=== PATIENT | female | born 1940 | race Caucasian/White ===

== ENCOUNTER 2017-01-21 14:41 | Emergency (ER) | payer MEDICARE, MEDICAID ==
[2017-01-21 14:52] VITALS: BP 123/71; PULSE 66; RESP 15; TEMP 98.1; O2SAT 98
[2017-01-21] MEDS ORDERED: Bacitracin 500 Units/gm Oint Foilpak UD TOP ONE (15:04)
--- NOTE | 2017-01-21 15:06 | C.PDOC ---
History Of Present Illness 76 yr old female presents to the ER with complaints of swelling and a bump to the right cheek for the past 2 days. Patient believes something bit her. Notes, initially the area was itchy but no longer itchy. Denies fever, chills, vision changes, discharge from the area or headache. Time Seen by Provider: 01/21/17 15:00 Chief Complaint (Nursing): Eye Problem History Per: Patient History/Exam Limitations: no limitations Onset/Duration Of Symptoms: Days (2) Current Symptoms Are (Timing): Still Present Past Medical History Reviewed: Historical Data, Nursing Documentation, Vital Signs Vital Signs: Last Vital Signs Temp 98.1 F 01/21/17 14:51 Pulse 66 01/21/17 14:51 Resp 15 01/21/17 14:51 BP 123/71 01/21/17 14:51 Pulse Ox 98 01/21/17 16:02 - Medical History PMH: Arthritis, Emphysema, HTN, Hypercholesterolemia, Osteoporosis - [facility] Procedures DRAINAGE OF RIGHT HAND SKIN, EXTERNAL APPROACH (11/20/15) Family History: States: No Known Family Hx - Social History Hx Tobacco Use: Yes Hx Alcohol Use: No Hx Substance Use: No - Immunization History Hx Tetanus Toxoid Vaccination: Yes Hx Influenza Vaccination: Yes (up to date) Hx Pneumococcal Vaccination: Yes (up to date) Review Of Systems Except As Marked, All Systems Reviewed And Found Negative. Constitutional: Positive for: Other ((+) Swelling and a bump to the right cheek. ). Negative for: Fever, Chills Eyes: Negative for: Vision Change Neurological: Negative for: Headache Physical Exam - Physical Exam Appears: Well, Non-toxic, No Acute Distress Skin: Warm, Dry, Other (Right Cheek: erythematous, non tender papule. No discharge. ) Head: Atraumatic, Normacephalic Eye(s): bilateral: Normal Inspection, PERRL, EOMI Nose: Normal, No Flaring, No Discharge Oral Mucosa: Moist Throat: Normal, No Erythema, No Exudate Neck: Normal, Normal ROM, Supple Chest: Symmetrical, No Tenderness Cardiovascular: Rhythm Regular, No Murmur Respiratory: Normal Breath Sounds, No Rales, No Rhonchi, No Stridor, No Wheezing Extremity: Normal ROM, No Swelling Neurological/Psych: Oriented x3, Normal Speech, Normal Motor ED Course And Treatment O2 Sat by Pulse Oximetry: 98 Pulse Ox Interpretation: Normal Progress Note: Bacitracin was applie dto the area. Patient is dischagred home in stable condiotion, told to follow up with PMD for further evaluation. Medical Decision Making Medical Decision Making: no abscess or cellulitis explain nothing further to do, will heal, can take Benadryl for itching Disposition Counseled Patient/Family Regarding: Need For Followup - Disposition Disposition: HOME/ ROUTINE Disposition Time: 15:05 Condition: STABLE Additional Instructions: Puede korey benadryl para cualquier picazn o inflamacin del benitez Instructions: Insect Bite or Sting (ED) Print Language: TURKISH - POA Present On Arrival: None - Clinical Impression Clinical Impression: Insect bite of cheek - PA / SURVEY STATISTICIAN / Resident Statement MD/DO has reviewed & agrees with the documentation as recorded. - Scribe Statement The provider has reviewed the documentation as recorded by the Scribe Evette Freitas All medical record entries made by the Scribe were at my direction and personally dictated by me. I have reviewed the chart and agree that the record accurately reflects my personal performance of the history, physical exam, medical decision making, and the department course for this patient. I have also personally directed, reviewed, and agree with the discharge instructions and disposition.
[2017-01-21] MEDS ORDERED: Bacitracin 500 Units/gm Oint Foilpak UD ONE (15:14)
== END 2017-01-21 15:14 | disposition home or self-care (01) ==
LOC: C.ER 14:41
DX: S00.86XA Insect bite (nonvenomous) of other part of head, initial encounter (principal); W57.XXXA Bitten or stung by nonvenomous insect and other nonvenomous arthropods, initial encounter

== ENCOUNTER 2018-01-26 20:21 | Inpatient (IN) | payer MEDICARE, OTHER ==
[2018-01-26] MEDS ORDERED: Sodium Chloride 0.9% 1,000 ML IV ONE (20:43)
--- NOTE | 2018-01-26 20:50 | C.PDOC ---
History Of Present Illness 77 year old female presents to the ER with a complaint of abdominal pain that began today. Patient states the pain is diffuse but mostly to the RLQ. Denies nausea, vomiting, diarrhea, or dysuria. Chief Complaint (Nursing): Abdominal Pain History Per: Patient History/Exam Limitations: no limitations Onset/Duration Of Symptoms: Hrs Current Symptoms Are (Timing): Still Present Location Of Pain/Discomfort: Diffuse, RLQ Radiation Of Pain To:: None Quality Of Discomfort: Unable To Describe Associated Symptoms: denies: Fever, Chills, Nausea, Vomiting, Diarrhea, Urinary Symptoms Exacerbating Factors: None Alleviating Factors: None Recent travel outside of the [place]: No Abnormal Vaginal Bleeding: No Past Medical History Reviewed: Historical Data, Nursing Documentation, Vital Signs Vital Signs: Last Vital Signs Temp 98.4 F 01/26/18 23:30 Pulse 78 01/26/18 23:30 Resp 19 01/26/18 23:30 BP 148/84 01/26/18 23:30 Pulse Ox 97 01/26/18 23:30 - Medical History PMH: Arthritis, Emphysema, HTN, Hypercholesterolemia, Osteoporosis - [facility] Procedures DRAINAGE OF RIGHT HAND SKIN, EXTERNAL APPROACH (11/20/15) Family History: States: Unknown Family Hx - Social History Hx Tobacco Use: Yes Hx Alcohol Use: No Hx Substance Use: No - Immunization History Hx Tetanus Toxoid Vaccination: Yes Hx Influenza Vaccination: Yes (up to date) Hx Pneumococcal Vaccination: Yes (up to date) Review Of Systems Constitutional: Negative for: Fever, Chills Cardiovascular: Negative for: Chest Pain, Palpitations Respiratory: Negative for: Cough, Shortness of Breath Gastrointestinal: Positive for: Abdominal Pain. Negative for: Nausea, Vomiting , Diarrhea Genitourinary: Negative for: Dysuria Physical Exam - Physical Exam Appears: Non-toxic Skin: Normal Color, Warm, Dry Head: Atraumatic, Normacephalic Eye(s): bilateral: Normal Inspection Oral Mucosa: Moist Chest: Symmetrical, No Tenderness Cardiovascular: Rhythm Regular Respiratory: Normal Breath Sounds, No Rales, No Rhonchi, No Wheezing Gastrointestinal/Abdominal: Soft, Tenderness (Diffuse, mostly to RLQ), No Guarding, No Rebound Neurological/Psych: Oriented x3, Normal Speech ED Course And Treatment - Laboratory Results Result Diagrams: 01/26/18 21:03 01/26/18 21:03 O2 Sat by Pulse Oximetry: 99 (Room air) Pulse Ox Interpretation: Normal Progress Note: Blood work and urinalysis ordered. IV fluids and toradol administered. Disposition Discussed With Dr.: Luther Zavaleta Doctor Will See Patient In The: Hospital Counseled Patient/Family Regarding: Diagnosis - Disposition Disposition: HOSPITALIZED Disposition Time: 00:16 Condition: STABLE Forms: [facility] ([place]) - POA Present On Arrival: None - Clinical Impression Clinical Impression: Abdominal pain, Acute appendicitis - Scribe Statement The provider has reviewed the documentation as recorded by the Scribromero Zelaya All medical record entries made by the Jessicaibromero were at my direction and personally dictated by me. I have reviewed the chart and agree that the record accurately reflects my personal performance of the history, physical exam, medical decision making, and the department course for this patient. I have also personally directed, reviewed, and agree with the discharge instructions and disposition.
[2018-01-26] MEDS ORDERED: Sodium Chloride 0.9% 1,000 ML ONE (21:04)
[2018-01-26 21:05] LABS: BASO # 0.1 K/uL (0.0-0.2); BASO % 0.8 % (0.0-2.0); EOS # 0.8 K/uL (0.0-0.7); EOS % 5.8 % (0.0-4.0); HEMOGLOBIN 13.6 g/dL (11.0-16.0); LYMPH # 1.5 K/uL (1.0-4.3); LYMPH % 10.5 % (20.0-40.0); MEAN CELL VOLUME 85.9 fL (81.0-99.0); MEAN CORPUSCULAR HEMOGLOBIN 28.7 pg (27.0-31.0); MEAN CORPUSCULAR HGB CONC 33.4 g/dL (33.0-37.0); MONO # 0.7 K/uL (0.0-0.8); MONO % 5.1 % (0.0-10.0); NEUT # 10.8 K/uL (1.8-7.0); NEUT % 77.8 % (50.0-75.0); RBC 4.72 Mil/uL (3.80-5.20); RED CELL DISTRIBUTION WIDTH 13.9 % (11.5-14.5); WHITE BLOOD COUNT 13.9 K/uL (4.8-10.8)
[2018-01-26 21:19] LABS: ALB/GLOB RATIO 1.1 (1.0-2.1); ALBUMIN 3.9 g/dL (3.5-5.0); ALT/SGPT 23 U/L (9-52); AST/SGOT 25 U/L (14-36); BLOOD UREA NITROGEN 9 mg/dL (7-17); CALCIUM 9.7 mg/dl (8.6-10.4); GFR AFRICAN-AMERICAN > 60; GFR NON-AFRICAN AMERICAN > 60; LIPASE 46 U/L (23-300)
[2018-01-26] MEDS ORDERED: Iohexol 240 (50 ml) PO ONE (21:25)
[2018-01-26 21:27] LABS: URINE BILIRUBIN NEGATIVE (NEGATIVE); URINE BLOOD NEGATIVE (NEGATIVE); URINE CLARITY Clear (Clear); URINE COLOR Straw (YELLOW); URINE GLUCOSE (UA) NORMAL (Normal); URINE LEUKOCYTE ESTERASE NEG Leu/uL (Negative); URINE PROTEIN NEGATIVE (NEGATIVE); URINE UROBILINOGEN NORMAL mg/dL (0.2-1.0)
[2018-01-26] MEDS ORDERED: Iohexol 240 (50 ml) ONE (21:29)
--- NOTE | 2018-01-26 23:57 | CT ---
EXAM: CT Abdomen and Pelvis With Intravenous Contrast CLINICAL HISTORY: 77 years old, female; Pain; Abdominal pain; Additional info: Abd pain TECHNIQUE: Axial computed tomography images of the abdomen and pelvis with intravenous contrast. All CT scans at this facility use one or more dose reduction techniques, viz.: automated exposure control; ma/kV adjustment per patient size (including targeted exams where dose is matched to indication; i.e. head); or iterative reconstruction technique. Coronal and sagittal reformatted images were created and reviewed. CONTRAST: 100 mL of [id number] administered intravenously. COMPARISON: No relevant prior studies available. FINDINGS: Limitations: Motion artifact - mild to moderate. Lung bases: Minimal atelectasis/scarring. Heart: Mild cardiomegaly. Mediastinum: Small hiatal hernia. ABDOMEN: Liver: Unremarkable. No mass. Gallbladder and bile ducts: No calcified stones. No ductal dilation. Pancreas: No ductal dilation. No mass. Spleen: No splenomegaly. Adrenals: 1.4 x 1.1 x 1.0 cm lesion within RIGHT adrenal gland, indeterminate by CT criteria. Kidneys and ureters: No mass. No hydronephrosis. Stomach and bowel: Few scattered diverticula within colon. No associated inflammatory stranding. No definite mural thickening. No obstruction. PELVIS: Appendix: Enlarged appendix, measuring up to 0.9 cm in diameter. Mucosal enhancement. Mild stranding about appendix. Bladder: Unremarkable. Reproductive: Hysterectomy. ABDOMEN and PELVIS: Intraperitoneal space: No significant fluid collection. No free air. Bones/joints: Mild degenerative changes of spine. Probable bone islands. No acute fracture. Soft tissues: Unremarkable. Vasculature: Mild atherosclerotic disease. No aneurysm. Lymph nodes: No pathologically enlarged lymph nodes. IMPRESSION: 1. Acute appendicitis. 2. Adrenal lesion, incompletely characterized. Recommend nonemergent MRI. 3. Incidental/non-acute findings are described above.
[2018-01-27] MEDS ORDERED: Piperacillin/Tazobact 3.375 gm 100 ML IVPB STA (00:08)
[2018-01-27] MEDS ORDERED: metroNIDAZOLE IV 500 mg/100 ml 500 MG/100 ML BAG IVPB SCH (00:15)
[2018-01-27] MEDS ORDERED: metroNIDAZOLE IV 500 mg/100 ml 500 MG/100 ML BAG IVPB STA (02:01)
[2018-01-27] MEDS ORDERED: metroNIDAZOLE IV 500 mg/100 ml 500 MG/100 ML BAG ONE (02:05)
[2018-01-27] MEDS ORDERED: Piperacillin/Tazobact 3.375 GM in Sodium Chloride 100 ML IVPB SCH (02:15)
--- NOTE | 2018-01-27 02:17 | CP.PCM.HP ---
History of Present Illness - History of Present Illness History of Present Illness: SURGERY H&P FOR DR. ARREAGA 77F presents with abdominal pain that started 12 hours ago. Patient states pain was in the lower abdomen initially and has now concentrated in the right lower quadrant. Patient admits to nausea and vomiting, admits to not tolerating diet. Denies fevers or chills. Never had this time of pain before. PMH: HTN, HLD, Emphysema PSH: Hysterectomy Social: smokes socially, does not drink alcohol Allergies: NKDA Present on Admission - Present on Admission Any Indicators Present on Admission: No Past Patient History - Infectious Disease Hx of Infectious Diseases: None - Past Medical History & Family History Past Medical History?: Yes - Past Social History Smoking Status: Light Smoker < 10 Cigarettes Daily - CARDIAC Hx Hypercholesterolemia: Yes Hx Hypertension: Yes - PULMONARY Hx Emphysema: Yes - NEUROLOGICAL Hx Neurological Disorder: No - HEENT Hx HEENT Problems: No - RENAL Hx Chronic Kidney Disease: No - ENDOCRINE/METABOLIC Hx Endocrine Disorders: No - HEMATOLOGICAL/ONCOLOGICAL Hx Blood Disorders: No - INTEGUMENTARY Hx Dermatological Problems: No - MUSCULOSKELETAL/RHEUMATOLOGICAL Hx Arthritis: Yes Hx Osteoporosis: Yes - GASTROINTESTINAL Hx Gastrointestinal Disorders: No - GENITOURINARY/GYNECOLOGICAL Hx Genitourinary Disorders: No - PSYCHIATRIC Hx Substance Use: No - SURGICAL HISTORY Hx Surgeries: Yes Hx Hysterectomy: Yes - ANESTHESIA Hx Anesthesia: Yes Hx Anesthesia Reactions: No Hx Malignant Hyperthermia: No Meds Allergies/Adverse Reactions: Allergies Allergy/AdvReac Type Severity Reaction Status Date / Time No Known Allergies Allergy Verified 01/26/18 20:29 Physical Exam - Constitutional Appears: Well, Non-toxic, No Acute Distress Additional comments: uncomfortable due to pain - Eye Exam Eye Exam: EOMI, PERRL - ENT Exam ENT Exam: Mucous Membranes Moist - Respiratory Exam Respiratory Exam: Clear to Auscultation Bilateral, NORMAL BREATHING PATTERN - Cardiovascular Exam Cardiovascular Exam: REGULAR RHYTHM, +S1, +S2 - GI/Abdominal Exam GI & Abdominal Exam: Soft, Tenderness (RLQ pain). absent: Distended, Firm, Guarding, Rebound, Rigid - Extremities Exam Extremities exam: Negative for: pedal edema, tenderness - Neurological Exam Neurological exam: Alert, Oriented x3 - Psychiatric Exam Psychiatric exam: Normal Affect, Normal Mood - Skin Skin Exam: Dry, Intact, Normal Color, Warm Results - Vital Signs Recent Vital Signs: Last Vital Signs Temp 98.4 F 01/26/18 23:30 Pulse 78 01/26/18 23:30 Resp 19 01/26/18 23:30 BP 148/84 01/26/18 23:30 Pulse Ox 99 01/27/18 00:17 - Labs Result Diagrams: 01/26/18 21:03 01/26/18 21:03 Labs: Laboratory Results - last 24 hr 01/26/18 01/26/18 01/26/18 21:03 21:03 21:12 WBC 13.9 H RBC 4.72 Hgb 13.6 Hct 40.6 MCV 85.9 MCH 28.7 MCHC 33.4 RDW 13.9 Plt Count 278 MPV 8.0 Neut % (Auto) 77.8 H Lymph % (Auto) 10.5 L [place] % (Auto) 5.1 Eos % (Auto) 5.8 H Baso % (Auto) 0.8 Neut # (Auto) 10.8 H Lymph # (Auto) 1.5 [place] # (Auto) 0.7 Eos # (Auto) 0.8 H Baso # (Auto) 0.1 Sodium 144 Potassium 4.3 Chloride 105 Carbon Dioxide 27 Anion Gap 16 BUN 9 Creatinine 0.6 L Est GFR ( Amer) > 60 Est GFR (Non-Af Amer) > 60 Random Glucose 95 Calcium 9.7 Total Bilirubin 0.4 AST 25 ALT 23 Alkaline Phosphatase 122 Total Protein 7.4 Albumin 3.9 Globulin 3.5 Albumin/Globulin Ratio 1.1 Lipase 46 Urine Color Straw Urine Clarity Clear Urine pH 7.0 Ur Specific [place] 1.008 Urine Protein Negative Urine Glucose (UA) Normal Urine Ketones Negative Urine Blood Negative Urine Nitrate Negative Urine Bilirubin Negative Urine Urobilinogen Normal Ur Leukocyte Esterase Neg Urine WBC (Auto) < 1 Urine RBC (Auto) 2 Assessment & Plan - Assessment and Plan (Free Text) Assessment: 77F with acute appendicitis Plan: NPO, IVF Pain control Antibiotics Scheduled for OR Discussed with Dr. Waqar Page, PGY2
[2018-01-27] MEDS ORDERED: HYDROmorphone 0.5 mg/0.5 ml ISec IVP PRN (02:21)
[2018-01-27] MEDS: Sodium Chloride 0.9% 1,000 ML IV SCH ×3 (03:30→22:09)
[2018-01-27 04:32] LABS: HEMOGLOBIN 12.1 g/dL (11.0-16.0); INR 1.1; WHITE BLOOD COUNT 12.1 K/uL (4.8-10.8)
[2018-01-27 04:42] LABS: BASO % 0.3 % (0.0-2.0); EOS # 0.5 K/uL (0.0-0.7); EOS % 4.3 % (0.0-4.0); LYMPH # 1.9 K/uL (1.0-4.3); LYMPH % 15.4 % (20.0-40.0); MEAN CELL VOLUME 85.9 fL (81.0-99.0); MEAN CORPUSCULAR HEMOGLOBIN 28.5 pg (27.0-31.0); MEAN CORPUSCULAR HGB CONC 33.2 g/dL (33.0-37.0); MEAN PLATELET VOLUME 8.1 fL (7.2-11.7); MONO # 0.8 K/uL (0.0-0.8); MONO % 6.6 % (0.0-10.0); NEUT # 8.9 K/uL (1.8-7.0); NEUT % 73.4 % (50.0-75.0); RBC 4.25 Mil/uL (3.80-5.20); RED CELL DISTRIBUTION WIDTH 13.4 % (11.5-14.5)
[2018-01-27 04:57] LABS: ALB/GLOB RATIO 1.3 (1.0-2.1); ALBUMIN 3.6 g/dL (3.5-5.0); ALT/SGPT 27 U/L (9-52); AST/SGOT 19 U/L (14-36); BLOOD UREA NITROGEN 7 mg/dL (7-17); CALCIUM 8.7 mg/dl (8.6-10.4); GFR AFRICAN-AMERICAN > 60; GFR NON-AFRICAN AMERICAN > 60
[2018-01-27] MEDS: Piperacillin/Tazobact 3.375 GM in Sodium Chloride 100 ML IVPB SCH ×3 (06:56→17:33)
[2018-01-27] MEDS ORDERED: Propofol 10 mg/ml Inj (20 ML) ONE (12:19)
[2018-01-27] MEDS ORDERED: Neostigmine Methylsulfate 3mg/3ml Syringe IV ONE (12:59)
--- NOTE | 2018-01-27 13:21 | PCM.SURG1 ---
Surgeon's Initial Post Op Note - Surgeon's Notes Surgeon: Dr. Zavaleta Cook [place]: Huey Hood PGY2 Type of Anesthesia: General Endo Anesthesia Administered By: Aleshia Pre-Operative Diagnosis: acute appendicitis Operative Findings: acute appendicitis Post-Operative Diagnosis: Same Operation Performed: laparoscopic appendectomy Specimen/Specimens Removed: appendix Estimated Blood Loss: EBL {In ML}: 10 Blood Products Given: N/A Drains Used: No Drains Post-Op Condition: Good Date of Surgery/Procedure: 01/27/18 Time of Surgery/Procedure: 13:20
[2018-01-27] MEDS ORDERED: Oxycodone/Acetaminophen 5/325 mg Tab PO PRN (13:29)
[2018-01-27 16:04] VITALS: RESP 20
[2018-01-28] MEDS: Piperacillin/Tazobact 3.375 GM in Sodium Chloride 100 ML IVPB SCH ×2 (00:33→13:30)
--- NOTE | 2018-01-28 01:55 | OP ---
PROCEDURE DATE: 01/27/2018 SURGEON: Luther Zavaleta MD ACID TANK CLEANER: Dr. Hood. ANESTHESIA: General. ANESTHESIOLOGISTS: Tino Burgos MD and Aleshia Mccartney CRNA PREOPERATIVE DIAGNOSIS: Acute appendicitis. POSTOPERATIVE DIAGNOSIS: Acute appendicitis. PROCEDURE: Laparoscopic appendectomy. DESCRIPTION OF OPERATION: With the patient in the supine position under adequate general anesthesia, the abdomen was prepped and draped in the usual sterile manner. Veress needle puncture was performed at the umbilicus with insufflation to 15 cm water pressure of CO2, and a 10-mm laparoscopic trocar was inserted via an infraumbilical incision. The patient was noted to have scattered adhesions presumably from her previous hysterectomy and under direct vision, a 5-mm trocar was inserted in the upper midline, and a 12-mm trocar was inserted in the right lower quadrant. The appendix was identified. It was exposed and noted to be acutely inflamed with a thickened edematous mesoappendix. The appendix was elevated and the mesoappendix was dissected. The mesoappendix was divided using an Endo VINCE stapler. The appendix itself was then amputated close to the cecum using a second pass of the Endo VINCE stapler. The stump was observed for hemostasis. The appendix was placed in a specimen retrieval bag and removed via the 12-mm port site. A small amount of bleeding initially noted from the umbilical port site was seemed to be emanating from an omental adhesion and with observation, this was noted to have stopped without additional treatment. The pneumoperitoneum was released, and the trocars were removed. The umbilical and 12-mm port sites were closed with [id number] fascial sutures of 0 Vicryl. All incisions were closed with 4-0 Monocryl subcuticular sutures and Dermabond. The patient tolerated the procedure well and transferred to recovery room in stable condition. Estimated blood loss for the procedure was 10 mL. Luther Zavaleta MD [facility]
[2018-01-28 07:51] LABS: BASO # 0.1 K/uL (0.0-0.2); BASO % 0.4 % (0.0-2.0); EOS # 0.1 K/uL (0.0-0.7); HEMOGLOBIN 11.3 g/dL (11.0-16.0); LYMPH # 1.9 K/uL (1.0-4.3); LYMPH % 13.1 % (20.0-40.0); MEAN CORPUSCULAR HGB CONC 33.3 g/dL (33.0-37.0); MEAN PLATELET VOLUME 8.2 fL (7.2-11.7); MONO # 1.1 K/uL (0.0-0.8); MONO % 7.2 % (0.0-10.0); NEUT # 11.4 K/uL (1.8-7.0); NEUT % 78.3 % (50.0-75.0); RBC 3.89 Mil/uL (3.80-5.20); RED CELL DISTRIBUTION WIDTH 13.9 % (11.5-14.5); WHITE BLOOD COUNT 14.6 K/uL (4.8-10.8)
[2018-01-28 08:04] VITALS: O2SAT 100
[2018-01-28 08:09] LABS: ALB/GLOB RATIO 0.9 (1.0-2.1); ALBUMIN 2.9 g/dL (3.5-5.0); ALT/SGPT 19 U/L (9-52); AST/SGOT 20 U/L (14-36); BLOOD UREA NITROGEN 11 mg/dL (7-17); CALCIUM 8.3 mg/dl (8.6-10.4); GFR AFRICAN-AMERICAN > 60; GFR NON-AFRICAN AMERICAN > 60
[2018-01-28] MEDS: Sodium Chloride 0.9% 1,000 ML IV SCH (08:15)
--- NOTE | 2018-01-28 10:17 | CP.PCM.DIS ---
Provider - Provider Date of Admission: 01/27/18 00:17 Attending physician: Luther Zavaleta MD Time Spent in preparation of Discharge (in minutes): 35 Diagnosis - Discharge Diagnosis (1) Abdominal pain Status: Resolved (2) Acute appendicitis Status: Resolved Hospital Course - Lab Results Lab Results: Most Recent Lab Values WBC 14.6 K/uL (4.8-10.8) H 01/28/18 07:43 RBC 3.89 Mil/uL (3.80-5.20) 01/28/18 07:43 Hgb 11.3 g/dL (11.0-16.0) 01/28/18 07:43 Hct 33.8 % (34.0-47.0) L 01/28/18 07:43 MCV 87.0 fL (81.0-99.0) 01/28/18 07:43 MCH 29.0 pg (27.0-31.0) 01/28/18 07:43 MCHC 33.3 g/dL (33.0-37.0) 01/28/18 07:43 RDW 13.9 % (11.5-14.5) 01/28/18 07:43 Plt Count 227 K/uL (130-400) 01/28/18 07:43 MPV 8.2 fL (7.2-11.7) 01/28/18 07:43 Neut % (Auto) 78.3 % (50.0-75.0) H 01/28/18 07:43 Lymph % (Auto) 13.1 % (20.0-40.0) L 01/28/18 07:43 [place] % (Auto) 7.2 % (0.0-10.0) 01/28/18 07:43 Eos % (Auto) 1.0 % (0.0-4.0) 01/28/18 07:43 Baso % (Auto) 0.4 % (0.0-2.0) 01/28/18 07:43 Neut # (Auto) 11.4 K/uL (1.8-7.0) H 01/28/18 07:43 Lymph # (Auto) 1.9 K/uL (1.0-4.3) 01/28/18 07:43 [place] # (Auto) 1.1 K/uL (0.0-0.8) H 01/28/18 07:43 Eos # (Auto) 0.1 K/uL (0.0-0.7) 01/28/18 07:43 Baso # (Auto) 0.1 K/uL (0.0-0.2) 01/28/18 07:43 PT 12.0 SECONDS (9.7-12.2) 01/27/18 04:24 INR 1.1 01/27/18 04:24 APTT 31 SECONDS (21-34) 01/27/18 04:24 Sodium 140 mmol/L (132-148) 01/28/18 07:43 Potassium 3.7 mmol/L (3.6-5.2) 01/28/18 07:43 Chloride 107 mmol/L (98-107) 01/28/18 07:43 Carbon Dioxide 23 mmol/L (22-30) 01/28/18 07:43 Anion Gap 14 (10-20) 01/28/18 07:43 BUN 11 mg/dL (7-17) 01/28/18 07:43 Creatinine 0.8 mg/dL (0.7-1.2) 01/28/18 07:43 Est GFR ( Amer) > 60 01/28/18 07:43 Est GFR (Non-Af Amer) > 60 01/28/18 07:43 Random Glucose 103 mg/dL (65-105) 01/28/18 07:43 Calcium 8.3 mg/dl (8.6-10.4) L 01/28/18 07:43 Total Bilirubin 0.9 mg/dL (0.2-1.3) 01/28/18 07:43 AST 20 U/L (14-36) 01/28/18 07:43 ALT 19 U/L (9-52) 01/28/18 07:43 Alkaline Phosphatase 84 U/L (38-126) 01/28/18 07:43 Total Protein 5.9 g/dL (6.3-8.3) L 01/28/18 07:43 Albumin 2.9 g/dL (3.5-5.0) L 01/28/18 07:43 Globulin 3.1 gm/dL (2.2-3.9) 01/28/18 07:43 Albumin/Globulin Ratio 0.9 (1.0-2.1) L 01/28/18 07:43 Lipase 46 U/L (23-300) 01/26/18 21:03 Urine Color Straw (YELLOW) 01/26/18 21:12 Urine Clarity Clear (Clear) 01/26/18 21:12 Urine pH 7.0 (5.0-8.0) 01/26/18 21:12 Ur Specific [place] 1.008 (1.003-1.030) 01/26/18 21:12 Urine Protein Negative mg/dL (NEGATIVE) 01/26/18 21:12 Urine Glucose (UA) Normal mg/dL (Normal) 01/26/18 21:12 Urine Ketones Negative mg/dL (NEGATIVE) 01/26/18 21:12 Urine Blood Negative (NEGATIVE) 01/26/18 21:12 Urine Nitrate Negative (NEGATIVE) 01/26/18 21:12 Urine Bilirubin Negative (NEGATIVE) 01/26/18 21:12 Urine Urobilinogen Normal mg/dL (0.2-1.0) 01/26/18 21:12 Ur Leukocyte Esterase Neg Tonie/uL (Negative) 01/26/18 21:12 Urine WBC (Auto) < 1 /hpf (0-5) 01/26/18 21:12 Urine RBC (Auto) 2 /hpf (0-3) 01/26/18 21:12 - Hospital Course Hospital Course: Patient presented to the ED on 01/[address] scan confirmed the diagnosis of an acute appendicitis. 01/27 the patient went to the operating room for a laparoscopic appendectomy. The procedure was uneventful and the patient had an uneventful recovery. Patient tolerating regular diet and is clear for D/ C home. Discharge Exam - Head Exam Head Exam: ATRAUMATIC, NORMOCEPHALIC - Eye Exam Eye Exam: EOMI, Normal appearance - Respiratory Exam Respiratory Exam: NORMAL BREATHING PATTERN - Cardiovascular Exam Cardiovascular Exam: +S1, +S2 - GI/Abdominal Exam GI & Abdominal Exam: Soft. absent: Firm, Guarding, Hernia, Rigid - Neurological Exam Neurological exam: Alert, Oriented x3 - Psychiatric Exam Psychiatric exam: Normal Affect, Normal Mood - Skin Skin Exam: Dry, Intact Discharge Plan - Follow Up Plan Condition: STABLE Disposition: HOME/ ROUTINE Instructions: Acute Abdominal Pain (DC), Acute Abdominal Pain (GEN) Additional Instructions: No heavy lifting for 4 weeks, you may shower in 2 days no soaking until seen by Dr. Zavaleta. You may remove dressing tomorrow however you have surgical strips of tape over the incisions do not remove they will fall off on their own in the shower. For pain control you can take over the counter ibuprofen and tylenol alternating between the two however do not exceed limits specified the bottles. If you develop any new or concerning symptoms call your primary care doctor, Dr. Zavaleta or go to the ED. Otherwise followup in 10-14 days.
[2018-01-28 15:44] VITALS: BP 137/82; PULSE 67; TEMP 97.4
== END 2018-01-28 19:00 | disposition home or self-care (01) | DRG 343 ==
LOC: C.ER 20:21 → C.9E 01-27 00:17 → C.5S 01-27 06:23
PROVIDERS: ADMIT Specialist; ATTEND Specialist
PROC: 0DTJ4ZZ Resection of Appendix, Percutaneous Endoscopic Approach (ICD-10-PCS; principal; 2018-01-27 12:20)
DX: K35.80 Unspecified acute appendicitis (principal); J43.9 Emphysema, unspecified; I10 Essential (primary) hypertension; E78.5 Hyperlipidemia, unspecified; M81.0 Age-related osteoporosis without current pathological fracture; F17.210 Nicotine dependence, cigarettes, uncomplicated

== ENCOUNTER 2018-07-29 13:59 | Emergency (ER) | payer MEDICARE, MEDICAID ==
--- NOTE | 2018-07-29 16:22 | C.PDOC ---
History Of Present Illness 78 year old female, whose past medical history includes hypertension and arthritis, presents to the ED for evaluation of left wrist pain and swelling which began 4 days ago. Patient has been taking Tylenol and Advil with minimal relief. She denies recent falls/injuries, direct trauma to the area, or extremity numbness/weakness. Time Seen by Provider: 07/29/18 14:53 Chief Complaint (Nursing): Finger,Hand,&Wrist History Per: Patient History/Exam Limitations: no limitations Onset/Duration Of Symptoms: Days (4) Current Symptoms Are (Timing): Still Present Quality: "Pain" Additional History Per: Patient Past Medical History Reviewed: Historical Data, Nursing Documentation, Vital Signs Vital Signs: Last Vital Signs Temp 97.5 F L 07/29/18 14:17 Pulse 78 07/29/18 14:17 Resp 20 07/29/18 14:17 BP 160/98 H 07/29/18 14:17 Pulse Ox 98 07/29/18 14:17 - Medical History PMH: Arthritis, Emphysema, HTN, Hypercholesterolemia, Osteoporosis Denies: Chronic Kidney Disease Surgical History: No Surg Hx - [facility] Procedures DRAINAGE OF RIGHT HAND SKIN, EXTERNAL APPROACH (11/20/15) RESECTION OF APPENDIX, PERCUTANEOUS ENDOSCOPIC APPROACH (01/27/18) Family History: States: Unknown Family Hx - Social History Hx Tobacco Use: Yes Hx Alcohol Use: No Hx Substance Use: No - Immunization History Hx Tetanus Toxoid Vaccination: Yes Hx Influenza Vaccination: Yes (up to date) Hx Pneumococcal Vaccination: Yes (up to date) Review Of Systems Musculoskeletal: Positive for: Other (left wrist pain ) Neurological: Negative for: Weakness, Numbness Physical Exam - Physical Exam Appears: Non-toxic, No Acute Distress Skin: Normal Color, Warm, Dry Extremity: No Normal ROM (limited ROM in right wrist secondary to pain ), Tenderness (mild, to dorsal aspect of left hand ), Capillary Refill (less than 2 seconds ), Swelling (mild, to dorsal aspect of left hand ) Pulses: Left Radial: Normal, Right Radial: Normal Neurological/Psych: Oriented x3, Normal Speech, Normal Cognition ED Course And Treatment O2 Sat by Pulse Oximetry: 98 (on RA) Pulse Ox Interpretation: Normal - Other Rad wrist XR X-Ray: Viewed By Me, Read By Radiologist Interpretation: Date of service: 07/29/2018. PROCEDURE: Left Wrist Radiographs. . HISTORY: pain to wrist , no fall or trauma. COMPARISON: None. FINDINGS: BONES: Normal. No fracture. JOINTS: Normal. No dislocation. SOFT TISSUES: Normal. OTHER FINDINGS: None. IMPRESSION: Normal left wrist radiographs. Medical Decision Making Medical Decision Making: Impression: 78 year old female with left wrist pain Plan: * left wrist XR * Motrin PO * Tylenol PO Progress: left wrist XR ordered and reviewed. Motrin PO and Tylenol PO given. On reassessment, patient is resting comfortably, and is in no acute distress. She reports the pain has improved. Patient was instructed to follow up with physician/clinic in 1-2 days for further evaluation. Disposition Counseled Patient/Family Regarding: Diagnosis, Need For Followup, Rx Given - Disposition Referrals: [facility] [Outside] [facility] [Outside] Disposition: HOME/ ROUTINE Disposition Time: 16:50 Condition: IMPROVED Additional Instructions: Abdifatah analbryson [place] necesario Prescriptions: Acetaminophen [Acetaminophen ER] 650 mg PO Q8 #30 tablet.er Ibuprofen [Motrin] 1 tab PO TID PRN #30 tab PRN Reason: Pain Instructions: Wrist Sprain (DC) Print Language: GEORGIAN - POA Present On Arrival: None - Clinical Impression Clinical Impression: Wrist arthralgia - PA / TOOL LIAISON / Resident Statement MD/DO has reviewed & agrees with the documentation as recorded. - Scribe Statement The provider has reviewed the documentation as recorded by the Scribe (Morena Pritchard) All medical record entries made by the Scribe were at my direction and personally dictated by me. I have reviewed the chart and agree that the record accurately reflects my personal performance of the history, physical exam, medical decision making, and the department course for this patient. I have also personally directed, reviewed, and agree with the discharge instructions and disposition.
--- NOTE | 2018-07-29 16:32 | RAD ---
Date of service: 07/29/2018 PROCEDURE: Left Wrist Radiographs. HISTORY: pain to wrist , no fall or trauma COMPARISON: None. FINDINGS: BONES: Normal. No fracture. JOINTS: Normal. No dislocation. SOFT TISSUES: Normal. OTHER FINDINGS: None. IMPRESSION: Normal left wrist radiographs.
[2018-07-29 16:44] VITALS: BP 169/82; PULSE 70; RESP 16; TEMP 98
[2018-07-29 17:44] VITALS: O2SAT 98
== END 2018-07-29 16:56 | disposition home or self-care (01) ==
LOC: C.ER 13:59
DX: M25.532 Pain in left wrist (principal)